=== PATIENT | female | born 1940 | race Caucasian/White ===

== ENCOUNTER → 2017-03-22 | Emergency (ER) | payer OTHER ==
[~2017-03-22] VITALS: Ht 157.5 cm; Wt 72.0 kg
[~2017-03-22] MED LIST: ALDACTONE100 MG PO; ALLEGRA180 MG PO; ASPIRIN81 M1 PO; Ascorbic Acid,Ester- PO; CARDURA4 MG PO; CARDURA8 MG PO; Cepacol Lozenge, Sor MM; Claritin,Alavart PO; ENDOCET 5-3251 EACH PO; Ecotrin PO; FLECTOR 1.3%1 PATC1 TD; FOSAMAX35 MG PO; Feosol PO; Flexeril PO; Folvite PO; LIDODERM 5% P1 PATCH TD; Levothroid,Synthroid PO; NAPROSYN500 MG PO; NEXIUM40 MG PO; PREMARIN0.625 MG PO; SENOKOT S,PE1 TABLET PO; SYNTHROID75 MCG PO; THERAGRAN1 TABLET PO; TRICOR145 MG PO; TRILIPIX135 MG PO; Tylenol Regular Stre PO; VALIUM2 MG PO; VITAMIN D1000 INTUN PO; VITAMIN D2000 UNIT PO; ZETIA10 MG PO; Zithromax PO; [UNRECOGNIZED DRUG - OTHER]
[2017-03-22 16:30] VITALS: BP 138/79
== END | disposition home or self-care (01) ==
LOC: EME 13:26
DX: M62.830 Muscle spasm of back (principal); K21.9 Gastro-esophageal reflux disease without esophagitis; I10 Essential (primary) hypertension; E78.5 Hyperlipidemia, unspecified; Z88.6 Allergy status to analgesic agent; Z87.891 Personal history of nicotine dependence
CPT/HCPCS: 72131; 99281; 99284; J1885